=== PATIENT | female | born 1950 | race Caucasian/White ===

== ENCOUNTER → 2018-04-12 | Outpatient (CLI) | payer MEDICARE ==
[~2018-04-12] MED LIST: ASPI-715 PO; CELE-1 PO; LOSA25TA51 PO; METXR500 PO; MULT1CAP59 PO; PER PO; PREDNISONE; SIMV-42 PO; TRIBENZOR PO; [UNRECOGNIZED DRUG - CODE] PO
--- NOTE | 2018-04-12 14:55 | RADIOLOGY IMAGING REPORT ---
FACILITY: [facility] PATIENT NAME: CORAZON MARTINEZ : [id number] MR: [id number] V: [id number] EXAM DATE: ORDERING PHYSICIAN: PARVEEN ARREDONDO TECHNOLOGIST: Denise Marie PROCEDURE:BILATERAL DIGITAL SCREENING MAMMOGRAM WITH CAD ASSISTED INTERPRETATION & 3D TOMOSYNTHESIS COMPARISON:Prior mammograms 06/08/16. INDICATIONS:SCREENING FINDINGS: A small amount of fibroglandular tissue is seen throughout the breasts. The parenchymal pattern has remained stable allowing for difference in mammographic technique & patient positioning. There is no evidence of malignant appearing mass, malignant appearing calcifications or other secondary sign of malignancy in either breast. DIAGNOSTIC CATEGORY 1--NEGATIVE. RECOMMENDATIONS: ROUTINE MAMMOGRAM AND CLINICAL EVALUATION. IMPRESSION: BIRADS 1: Negative. No significant abnormality is seen. Dictated by: Sherin Garcia M.D. on 04/12/2018 at 14:47 Transcribed by: [email or web address] on 04/12/2018 at 14:51 Approved by: Sherin Garcia M.D. on 04/12/2018 at 14:54 [facility]
== END ==
LOC: MAMO 02:54
PROVIDERS: ATTEND Nurse Practitioner Family
DX: Z12.31 Encounter for screening mammogram for malignant neoplasm of breast (principal)
CPT/HCPCS: 77063; 77067

== ENCOUNTER → 2018-05-22 | Outpatient (CLI) | payer MEDICARE ==
[2018-05-22 07:56] LABS: INR 0.97
--- NOTE | 2018-05-22 17:10 | RADIOLOGY IMAGING REPORT ---
FACILITY: PATIENT NAME: Sheri Leiva : 1950 MR: [id number] V: [id number] EXAM DATE: ORDERING PHYSICIAN: PARVEEN ARREDONDO TECHNOLOGIST: Location: [facility] Patient: Sheri Leiva : 1950 Visit/Account:[id number] Date of Sevice: 05/22/2018 Exam type: THYROID BIOPSY FINE NEEDLE ASP History: History of right-sided thyroid nodules Comparison: None. Findings: Informed consent was obtained. The right side of the patient's neck was prepped and draped usual kaleb rile fashion. Local anesthesia, was accomplished with 1% lidocaine. Under sonographic guidance four 25-gauge FNA biopsies were obtained through each of the two dominant nodules in the right lobe of th e thyroid gland. Samples were given to the applied technologist for processing. The procedure was without apparent complication. IMPRESSION: 1. Successful sonographically guided FNA biopsy of two dominant right thyroid nodules Report Dictated By: Sherin Garcia MD at 05/22/2018 5:04 PM Report E-Signed By: Sherin Garcia MD at 05/22/2018 5:06 PM WSN:[email or web address]
== END ==
LOC: US 00:33
PROVIDERS: ATTEND Nurse Practitioner Family
DX: E04.1 Nontoxic single thyroid nodule (principal)
CPT/HCPCS: 10022; 36415; 76942; 85610; 88104; 88172

== ENCOUNTER → 2018-08-15 | Outpatient (CLI) | payer MEDICARE ==
--- NOTE | 2018-08-15 12:34 | RADIOLOGY IMAGING REPORT ---
FACILITY: [facility] PATIENT NAME: Sheri Leiva : 1950 MR: [id number] V: [id number] EXAM DATE: ORDERING PHYSICIAN: PARVEEN ARREDONDO TECHNOLOGIST: Location: [facility] Patient: Sheri Leiva : 1950 Visit/Account:[id number] Date of Sevice: 08/15/2018 DEXA Scan Clinical history: Primary ovarian failure. Comparison: DEXA scan from 06/08/2016. LUMBAR SPINE: The bone mineral density (BMD) measured from L1-L4 correlates with a Z-score of 7.8 and a T-score of 7.4 which is Normal as defined by the World Health Organization. The corresponding risk of fracture in the lumbar spine is Not increased compared with a young adult reference population. This value cox s increase by 6.9 % since the prior study. More than 5% change is considered significant. HIP: Bone mineral density (BMD) measured in the LEFT total hip region correlates with a Z-score 3.3 and a T-score of 2.7 which is normal as defined by the World Health Organization. The corresponding risk of fracture in the hip is Not i ncreased compared to a young adult reference population. This value has decrease by 0.4 % since the p rior study. More than 5% change is considered significant. T score left femoral neck -0.6 Bone mineral density (BMD) measured in the Femoral Neck region measures 0.957 g/cm?. IMPRESSION: 1. Lumbar spine: Normal. There has been 6.9% increase in the bone mineral density since the previou s exam. 2. Left Total Hip: Normal. There has been 0.4% decrease in the bone mineral density since the previ ous exam. 3. Femoral Neck: Bone Mineral Density is 0.957 g/cm? The next DEXA scan of this patient should include the following sites: L1-L4 and the left hip. FRAX? WHO Fracture Risk Assessment Tool link: <http://www.shef.ac.uk/FRAX/tool.jsp?locationValue=9> PLEASE NOTE: 1) The World Health Organization defines low BMD as follows: T-score Normal > -1 Osteopenia < -1 and > -2.5 Osteoporosis < -2.5 without fractures Established osteoporosis < -2.5 with fractures 2) In general, you may wish to consider: Diagnosis Treatment Follow-up DEXA Normal BMD Prevention 2-3 years Osteopenia Prevention/therapy 1-2 years Osteoporosis Therapy Yearly 3) Fracture risk estimated from the T-score is more accurate for vertebral fractures (often spontane ous) than for hip fractures. Report Dictated By: Sherin Garcia MD at 08/15/2018 12:28 PM Report E-Signed By: Sherin Garcia MD at 08/15/2018 12:30 PM WSN:[email or web address]
== END ==
LOC: RAD 07:17
PROVIDERS: ATTEND Nurse Practitioner Family
DX: E55.9 Vitamin D deficiency, unspecified (principal); M85.80 Other specified disorders of bone density and structure, unspecified site; E28.39 Other primary ovarian failure
CPT/HCPCS: 77080